=== PATIENT | female | born 1990 | race Caucasian/White ===

== ENCOUNTER 2017-04-24 19:25 | Emergency (ER) | payer OTHER ==
[~2017-04-24] VITALS: Ht 157.5 cm; Wt 74.8 kg
--- NOTE | ~2017-04-24 | EKG ---
[address] [address] ELECTROCARDIOGRAM REPORT Name: ABRAM AVENDAÑO Room #: DEP [facility] [id number] Admission: 04/24/17 Attend Phys: Discharge: 04/24/17 Date of : 89 Report #: [id number] THIS REPORT FOR: //name// [facility] ED Test Date: 2017-04-24 Test Time: 19:47:57 Pat Name: ABRAM AVENDAÑO Department: Room: Gender: F Manager Statistical: MAEVE : 1990 Requested By: Fernanda Michel Order Number: [id number] MD: Micah Barbosa Measurements Intervals [place] Rate: 68 P: -35 DE: 157 QRS: 0 QRSD: 77 T: 19 QT: 389 QTc: 414 Interpretive Statements Sinus rhythm Low voltage, precordial leads No previous ECG available for comparison Electronically Signed On 04-24-2017 21:24:07 CDT by Micah Barbosa [email or web address] <ELECTRONICALLY SIGNED> By: Micah Barbosa MD 04/24/[id number] 46 46 Micah Barbosa MD /JACQUELINE
[2017-04-24 20:03] LABS: ICTOTEST (BILI CONFIRMATORY) Negative (Negative); URINE BILIRUBIN 1+ (Negative); URINE BLOOD 3+ (Negative); URINE GLUCOSE-RANDOM* NEGATIVE (Negative); URINE KETONES TRACE (Negative); URINE LEUKOCYTES-REFLEX TRACE (Negative); URINE PROTEIN (DIPSTICK) 2+ (Negative)
[2017-04-24 20:04] LABS: URINE COLOR AMBER
[2017-04-24 20:24] LABS: SQUAMOUS 0-3 Few /LPF (0-3); URINE WBC-REFLEX 0-5 Rare /HPF (0-5)
[2017-04-24 20:25] LABS: URINE RBC >20 Many /HPF (0-2)
[2017-04-24 20:26] LABS: CASTS None Seen /LPF (None Seen); CRYSTALS None Seen /LPF (None Seen)
[2017-04-24 20:43] LABS: ABSOLUTE NEUTROPHILS 7.7 thou/uL (1.4-8.2); BASOPHILS 0.3 % (0.0-2.0); EOSINOPHILS 1.3 % (0.0-3.0); HEMATOCRIT 38.9 % (37.0-47.0); HEMOGLOBIN 12.7 gm/dL (12.0-15.0); LYMPHOCYTES 19.9 % (24.0-44.0); MCH 29.1 pg (26.0-34.0); MCHC 32.7 g/dL (28.0-37.0); MONOCYTES 5.9 % (1.0-8.0); PLATELET COUNT 254 thou/uL (150-400); POLYS 72.6 % (36.0-66.0); RBC 4.37 mil/uL (4.20-5.00); WBC 10.7 thou/uL (4.0-11.0)
[2017-04-24 20:44] LABS: MANUAL DIFF NO
[2017-04-24 20:53] LABS: ANION GAP 9 mmol/L (7-16); BUN 7 mg/dL (7-18); CALCIUM 8.7 mg/dL (8.5-10.1); CHLORIDE 106 mmol/L (98-107); CO2 27 mmol/L (21-32); CREATININE 0.6 mg/dL (0.6-1.0); GLUCOSE 111 mg/dL (74-106); POTASSIUM 3.9 mmol/L (3.5-5.1); SODIUM 142 mmol/L (136-145)
[2017-04-24 20:59] LABS: ALBUMIN 3.9 g/dL (3.4-5.0); ALKALINE PHOSPHATASE 63 U/L (46-116); SGOT 16 U/L (15-37); SGPT 22 U/L (30-65); TOTAL BILIRUBIN 0.2 mg/dL (<0.1-1.0); TOTAL PROTEIN 7.4 g/dL (6.4-8.2); TROPONIN-I < 0.04 ng/mL (<0.04-0.07)
[2017-04-24] MEDS ORDERED: NAPROSYN500 MG PO (21:04)
[2017-04-24 21:08] VITALS: BP 132/57
== END 2017-04-24 21:12 | disposition home or self-care (01) ==
LOC: ER 19:25
PROVIDERS: Physician Assistant
DX: R07.89 Other chest pain (principal); F17.210 Nicotine dependence, cigarettes, uncomplicated; Z90.89 Acquired absence of other organs